=== PATIENT | female | born 1970 | race Caucasian/White ===

== ENCOUNTER 2020-10-06 13:22 | Emergency (ER) | payer OTHER, SELFPAY ==
[2020-10-06 13:58] VITALS: BP 131/75; PULSE 73; RESP 14; TEMP 36.6; O2SAT 100; BMI 30.7
[2020-10-06] MEDS: ACETAMINOPHEN 325 MG TABLET 650 MG PO (14:53)
[2020-10-06] MEDS: TET,DIPH,PERTUSS(ACELL),VAC/PF 0.5 ML SYRINGE IM (14:54)
[2020-10-06] MEDS: LIDOCAINE/PRILOCAINE 5 GM TOP (14:55)
--- NOTE | 2020-10-06 14:59 | PC.NURSE ---
placed lidocaine/prilocaine ointment placed on back of head
--- NOTE | 2020-10-06 15:38 | ED_ITS ---
HPI - Wound/Laceration <ANTONINO AlvarezP - Last Filed: 10/06/20 15:58> General Chief Complaint: Wound/Laceration Stated Complaint: Hit back of head, bleeding Time Seen by Provider: 10/06/20 14:08 Source: patient Mode of arrival: Ambulatory Limitations: no limitations History of Present Illness HPI narrative: This is a 50-year-old female, nonsmoker, who has past medical history significant for fibromyalgia presents to ED with chief complain of posterior head scalp laceration and closed head injury. Patient currently resides in [facility] and she had her dog out to e and the dog went under the RV and when she tried to get the dog out under the RV, she hit her posterior head on the slide of the RV on the metal edge. She denies losing consciousness, neck pain, tingling/numbness/weakness in her upper extremities, vomiting, or seizure activities. She denies taking anticoagulants or antiplatelets at this time. Reports last tetanus immunization are about 7 years ago. Home base is in [place]. Related Data Home Medications Medication Instructions Recorded Confirmed gabapentin 1,200 10/06/20 Allergies Allergy/AdvReac Type Severity Reaction Status Date / Time adhesive tape Allergy Mild Rash Verified 10/06/20 14:51 codeine Allergy ITCHING Verified 10/06/20 14:51 Review of Systems <ANTONINO AlvarezP - Last Filed: 10/06/20 15:58> Review of Systems Narrative: General: Denies fever, chills, fatigue, malaise, sweats. HEENT: See HPI Respiratory: Denies dyspnea, cough, wheezing, hemoptysis, sputum. Cardiovascular: Denies chest pain, palpitations, orthopnea, edema. Gastrointestinal: Denies nausea, vomiting, abdominal pain, diarrhea, constipation, melena. : Denies dysuria, frequency, incontinence, hematuria, urinary retention. Musculoskeletal: Denies weakness, joint pain or bony pain. Skin: See HPI Neurologic: Denies weakness, headache, numbness, change in speech, confusion, seizures, incoordination. Psychiatric: No concerning psychosocial issues. 12-point review of systems is negative except for those stated above. Patient History <ANTONINO AlvarezP - Last Filed: 10/06/20 15:58> Medical History (Updated 10/06/20 @ 15:49 by CORNELIO Alvarez) History of fibromyalgia Social History Smoking Status: Never smoker Smoking Status: Never smoker alcohol intake frequency: 0-2 drinks per day Substance Use Type: does not use Exam <CORNELIO Alvarez - Last Filed: 10/06/20 15:58> Narrative Exam Narrative: General appearance: well developed, well nourished, in no acute distress. Head: normocephalic, vertical 2.5 cm laceration in posterior head, no step-offs, tender to palpate in posterior head. ENT: Bilateral auditory canals without drainage. No Moses signs. Hearing grossly intact. Nose without bleeding, purulent discharge, septal hematoma or deviation. Mucous membrane moist, no mucosal lesion. Throat without erythema, tonsillar hypertrophy or exudate. Uvula in midline, airway patent. Neck/Thyroid: neck supple, full range of motion, no visible masses or meningeal signs. No JVD, non-tender, no step-offs without lymphadenopathy. Skin: See head exam. no suspicious rashes, lesions over visible areas. Warm and dry and appropriate color for ethnicity. Heart: no clubbing, no cyanosis, no edema. S1 and S2 normal. RRR w/o murmurs, clicks, or bruits. Lungs: Breathing even and unlabored. No stridor. No accessory muscles used. Able to speak in full sentences. Chest: normal shape and expansion. Abdomen: non-obese, non-distended. Neurologic: alert and oriented. 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 Psych: good eye contact, normal affect. Initial Vital Signs Initial Vital Signs: Vital Signs Temperature 97.8 F 10/06/20 13:58 Pulse Rate 73 10/06/20 13:58 Respiratory Rate 14 10/06/20 13:58 Blood Pressure 131/75 10/06/20 13:58 Pulse Oximetry 100 10/06/20 13:58 <Ursula Gutierrez DO - Last Filed: 10/07/20 07:31> Initial Vital Signs Initial Vital Signs: Vital Signs Temperature 97.8 F 10/06/20 13:58 Pulse Rate 73 10/06/20 13:58 Respiratory Rate 14 10/06/20 13:58 Blood Pressure 131/75 10/06/20 13:58 Pulse Oximetry 100 10/06/20 13:58 Procedures <Arnold TorresANTONINO arguetaP - Last Filed: 10/06/20 15:58> Laceration Repair Laceration 1: Site: scalp (posterior) Size (cm): 2.5 Description: linear (vertical) Depth: simple, single layer Local Anesthetic: other anesthetic (EMLA) Pre-repair: wound explored and irrigated extensively Skin layer closed with: li Number of sutures: 4 Scores <Arnold [facility]ANTONINO [facility]Hon[facility] Last Filed: 10/06/20 15:58> Swain CT Head Rule Age <16 years old: No Patient on blood thinners: No Seizure after injury: No Exclusion: Patient NOT Excluded, Proceed to next steps GCS < 15 at 2 hr post trauma: No Suspected open or depressed skull fracture: No Any sign of basilar skull fracture (hemotympanum, raccoon eyes, Moses's sign, CSF kal-/rhinorrhea): No Two or more episodes of vomiting: No Age greater or equal to 65 years: No Retrograde amnesia to the event greater or equal to 30 min: No Dangerous Mechanism (pedestrian vs. mv, occupant ejected from mv, fall from >3 ft or > 5 stairs): No Recommendation: CT unnecessary GCS Linda coma scale eye opening: Spontaneous [place] coma scale verbal response: Orientated [place] coma scale motor response: Obey commands Linda coma scale total score: 15 Course <Arnold TorresANTONINO arguetaP - Last Filed: 10/06/20 15:58> Orders Ordered: Discontinued Medications Acetaminophen (Acetaminophen 325 Mg Tablet) 650 mg PO NOW ONE Stop: 10/06/20 14:41 Last Admin: 10/06/20 14:53 Dose: 650 mg Documented by: NEERAJ Bacitracin (Bacitracin Oint 0.9 Gm Pckt) 1 applic TOP NOW ONE Stop: 10/06/20 15:39 Last Admin: 10/06/20 16:17 Dose: 1 applic Documented by: MARVA Diphtheria/Tetanus/Acell Pertussis (Tet,Diph,Pertuss(Acell),Vac/Pf 0.5 Ml Syringe) 0.5 ml IM .ONCE ONE Stop: 10/06/20 14:41 Last Admin: 10/06/20 14:54 Dose: 0.5 ml Documented by: NEERAJ Lidocaine/Prilocaine (Lidocaine/Prilocaine 5 Gm) 5 gm TOP NOW ONE Stop: 10/06/20 14:41 Last Admin: 10/06/20 14:55 Dose: 5 gm Documented by: NEERAJ Vital Signs Vital signs: Vital Signs - 8 hr 10/06/20 13:58 Temperature 97.8 F Pulse Rate 73 Respiratory Rate 14 Blood Pressure 131/75 Pulse Oximetry 100 <Ursula Gutierrez DO - Last Filed: 10/07/20 07:31> Orders Ordered: Discontinued Medications Acetaminophen (Acetaminophen 325 Mg Tablet) 650 mg PO NOW ONE Stop: 10/06/20 14:41 Last Admin: 10/06/20 14:53 Dose: 650 mg Documented by: NEERAJ Bacitracin (Bacitracin Oint 0.9 Gm Pckt) 1 applic TOP NOW ONE Stop: 10/06/20 15:39 Last Admin: 10/06/20 16:17 Dose: 1 applic Documented by: CVANCE Diphtheria/Tetanus/Acell Pertussis (Tet,Diph,Pertuss(Acell),Vac/Pf 0.5 Ml Syringe) 0.5 ml IM .ONCE ONE Stop: 10/06/20 14:41 Last Admin: 10/06/20 14:54 Dose: 0.5 ml Documented by: NEERAJ Lidocaine/Prilocaine (Lidocaine/Prilocaine 5 Gm) 5 gm TOP NOW ONE Stop: 10/06/20 14:41 Last Admin: 10/06/20 14:55 Dose: 5 gm Documented by: NEERAJ Vital Signs Vital signs: Vital Signs - 8 hr 10/06/20 13:58 Temperature 97.8 F Pulse Rate 73 Respiratory Rate 14 Blood Pressure 131/75 Pulse Oximetry 100 [facility] - Wound/Laceration <CORNELIO Avlarez - Last Filed: 10/06/20 15:58> Differential Diagnosis Differential diagnosis: Likely laceration and other (Closed head injury) Medical Records Attestation: I reviewed the patient's medical records. [facility] Narrative Medical decision making narrative: This is a 50-year-old female who presents to ED with closed head injury in posterior head with vertical scalp laceration measuring 2.5 cm. Patient is currently not taking anticoagulants or antiplatelets. GCS 15. Swain head CT rule score 0. Head CT deferred. Slightly tender to palpate in posterior scalp laceration without step-offs, or significant edema. Patient is neurologically intact with midcervial tenderness. Head laceration repaired with 4 li after thoroughly cleaned. Return precautions discussed with patient and advised wound recheck in 2-3 days and staple removal in 7-10 days. We also discussed wound care at home. Advised to use Tylenol as needed for headache and closed head injury precautions. Patient verbalized understanding in agreement with treatment plan. Discharge Plan Departure Patient Disposition: Home Clinical Impression: CHI (closed head injury) Qualifiers: Encounter type: initial encounter Qualified Code(s): S09.90XA - Unspecified injury of head, initial encounter Laceration of scalp Qualifiers: Encounter type: initial encounter Qualified Code(s): S01.01XA - Laceration without foreign body of scalp, initial encounter Instructions: DI for Laceration Repair -- Li, DI for Closed Head Injury Activity Restrictions/Additional Instructions: You have been diagnosed with [closed head injury and posterior scalp laceration that has been repaired with 4 li. You have received Tdap immunization today.]. What to do: *Take your medications as directed. You can use [id number] Tylenol as needed for discomfort. Please do not get your wound soaked in the water until staple removal. You can wash your hair with soap and water after 24 hours. Pat dry with clean paper towel and dress it with antibiotic ointment several times a day as needed. Please monitor for signs and symptoms for infection such as increasing redness, swelling, warmth, pain, fever, purulent discharge. If this occurs, please return to ED or follow up with your primary care physician since your wound may be gotten infected. Please follow up with your primary care provider in 2-3 days for recheck wound. Your li should be removed [ 7-10 ] days. This can be done by your primary provider, walk-in clinic or here in ED. Please keep your wound clean, dry and intact all times. *Follow up with your primary care provider in 2-3 days, call for an appointment. Let them know you were seen in the ED and that we asked you to be seen in follow up. *Return to ED if you have any new, worsening, or concerning symptoms, such as [u nusual behavior, severe headache, vomiting, seizure-like activities, signs and symptoms of infection as above, chest pain, breathing difficulty or any acute concerns]. Prescriptions: No Action gabapentin 600 mg tablet 1,200 RF: 0 <Ursula Gutierrez, - Last Filed: 10/07/20 07:31> Cosign ED Attending Cosignature Attestation: I was immediately available in the department for consultation. Documentation has been reviewed. I agree with asse ssment and plan.
[2020-10-06] MEDS: BACITRACIN OINT 0.9 GM PCKT 1 APPLIC TOP (16:17)
[2020-10-06 16:21] VITALS: BP 129/76; PULSE 54; RESP 14; O2SAT 100
== END 2020-10-06 16:22 | disposition home or self-care (01) ==
PROVIDERS: Emergency Provider Nurse Practitioner Family
DX: S01.01XA Laceration without foreign body of scalp, initial encounter (principal); S09.90XA Unspecified injury of head, initial encounter; W19.XXXA Unspecified fall, initial encounter; Z23 Encounter for immunization
CPT/HCPCS: 12001; 90471; 99282; 99283; 90715

== ENCOUNTER → 2022-03-20 16:28 | Outpatient (CLI) | payer OTHER, SELFPAY ==
--- NOTE | 2022-03-20 16:30 | DI.RAD.S_ITS ---
PROCEDURE: XR KNEE LT 3V INDICATIONS: Knee crepitus and pain TECHNIQUE: 3 views of the knee were acquired. COMPARISON: None. FINDINGS: Bones: No fractures or dislocations. Mild tricompartmental osteoarthritis is seen with joint space narrowing and subchondral sclerosis more prominent in medial femoral tibial compartment. No suspicious bony lesions. Soft tissues: No joint effusion. No suspicious soft tissue calcifications. IMPRESSION: Mild tricompartmental osteoarthritis more prominent in medial femoral tibial compartment. No fracture or dislocation. No significant joint effusion. Dictated by: Ti Morrison M.D. on 03/20/2022 at 18:13 Approved by: Ti Morrison M.D. on 03/20/2022 at 18:13
== END ==
PROVIDERS: PCP Internal Medicine; Referring Provider Student in an Organized Health Care Education/Training Program; Visit Provider Student in an Organized Health Care Education/Training Program
DX: M25.562 Pain in left knee (principal); M17.12 Unilateral primary osteoarthritis, left knee
CPT/HCPCS: 73562

== ENCOUNTER → 2022-08-01 07:55 | Outpatient (CLI) | payer OTHER, SELFPAY ==
--- NOTE | 2022-08-01 | DI.MG.S_ITS ---
BILATERAL DIGITAL SCREENING MAMMOGRAM 3D/2D WITH CAD: 08/01/2022 CLINICAL: Routine screening. Comparison is made to exams dated: 03/07/2020 mammogram and 01/18/2019 mammogram - outside facility. Both breasts are heterogeneously dense, which may obscure small masses (category c / 51-75% glandular tissue). Current study was also evaluated with a Computer Aided Detection (CAD) system. There is a possible developing irregular high density asymmetry in the right breast at 11 o'clock middle depth. No other significant masses, calcifications, or other findings are seen in either breast. IMPRESSION: INCOMPLETE: NEEDS ADDITIONAL IMAGING EVALUATION The possible developing irregular high density asymmetry in the right breast is indeterminate. Additional views with possible ultrasound are recommended. Based on the Tyrer Cuzick model (a risk assessment model) the patient's lifetime risk is 7.8% and her 10 year risk is 1.7%. According to the ACR, ACS, and NCCN guidelines, an annual breast MRI exam along with mammogram is recommended if the patient's lifetime risk is 20% or greater. This exam was interpreted at Station ID: [id number]. NOTE: For mammograms, a report in lay terms will be sent to the patient. Approximately 15% of breast malignancies will not be visualized mammographically. In the management of a palpable breast mass, a negative mammogram must not discourage biopsy of a clinically suspicious lesion. Electronically Signed By: Karen pond/rivka:08/01/2022 11:45:10 letter sent: Additional Imaging Needed ACR BI-RADS Category 0: Incomplete [id number]
== END ==
PROVIDERS: PCP Internal Medicine; Referring Provider Internal Medicine; Visit Provider Internal Medicine
DX: Z12.31 Encounter for screening mammogram for malignant neoplasm of breast (principal)
CPT/HCPCS: 77063; 77067

== ENCOUNTER → 2022-08-20 10:17 | Outpatient (CLI) | payer OTHER, SELFPAY ==
--- NOTE | 2022-08-20 10:18 | DI.MG.S_ITS ---
UNILATERAL RIGHT DIGITAL DIAGNOSTIC MAMMOGRAM 3D/2D WITH ADDITIONAL VIEWS: 08/20/2022 CLINICAL: Additional evaluation requested from prior study. Comparison is made to exams dated: 08/01/2022 mammogram - [facility], 03/07/2020 mammogram, and 01/18/2019 mammogram - outside facility. There are scattered areas of fibroglandular density in the right breast (category b / 25%-50% glandular tissue). With focal spot compression, and additional views, the possible asymmetry seen on screening mammography in the right breast at 11 o'clock in the middle depth resolves. No persistent finding. No significant masses, calcifications, or other findings are seen in the breast. IMPRESSION: NEGATIVE Resolution of screening mammography abnormality with additional views. There is no mammographic evidence of malignancy. Return to annual mammogram screening schedule is recommended. Findings and recommendations were conveyed to the patient at time of exam. Based on the Tyrer Cuzick model (a risk assessment model) the patient's lifetime risk is 5.2% and her 10 year risk is 1.1%. According to the ACR, ACS, and NCCN guidelines, an annual breast MRI exam along with mammogram is recommended if the patient's lifetime risk is 20% or greater. This exam was interpreted at Station ID: [id number]. NOTE: For mammograms, a report in lay terms will be sent to the patient. Approximately 15% of breast malignancies will not be visualized mammographically. In the management of a palpable breast mass, a negative mammogram must not discourage biopsy of a clinically suspicious lesion. Electronically Signed By: Karen pond/:08/20/2022 10:43:30 letter sent: Normal Exam ACR BI-RADS Category 1: Negative [id number]
== END ==
PROVIDERS: PCP Internal Medicine; Referring Provider Internal Medicine; Visit Provider Internal Medicine
DX: R92.8 Other abnormal and inconclusive findings on diagnostic imaging of breast (principal)
CPT/HCPCS: 77065; G0279

== ENCOUNTER → 2023-02-03 16:42 | Outpatient (CLI) | payer OTHER, SELFPAY ==
--- NOTE | 2023-02-03 | DI.MRI.S_ITS ---
PROCEDURE: MR ORBITS FACE NECK WO/W CON INDICATIONS: TRIGEMINAL NEURALGIA TECHNIQUE: Sagittal/axial/coronal T1 spin echo and STIR. After the administration of contrast, axial/coronal/sagittal T1 fast spin echo with fat saturation through the neck. COMPARISON: None. FINDINGS: Image quality: There is artifact associated with the metallic dental work. Lymph nodes: No enlarged nodes are seen throughout the neck. Vessels: Visualized vasculature appears normal, with normal flow voids and enhancement. Neck spaces: Scrutiny is given to the oral and the perimandibular regions. To the limits of the study with susceptibility artifact, no fluid collections or abnormal enhancement can be seen. The oropharynx, nasopharynx and pharynx are unremarkable, without mucosal lesions seen. Vocal cords, false vocal cords, pyriform sinuses, epiglottis, vallecula, and tongue base all appear normal. Extramucosal spaces of the neck also appear unremarkable. Glands: The parotid and submandibular glands appear normal. Miscellaneous: Visualized brain and orbits appear normal. Lung apices appear clear. Superficial soft tissues appear normal. Visualized sinuses and mastoids appear clear. Bones: Marrow has normal overall signal. IMPRESSION: Study within normal limits, although limited by susceptibility artifact from the patient's metallic dental work. Dictated by: Byron Campbell M.D. on 02/03/2023 at 18:19 Approved by: Byron Campbell M.D. on 02/03/2023 at 18:21
--- NOTE | 2023-02-03 16:45 | DI.MRI.S_ITS ---
PROCEDURE: MR HEAD/BRAIN WO/W CON INDICATIONS: Trigeminal Neuralgia TECHNIQUE: Noncontrast sagittal T1 spin echo, axial T2 fast spin echo, axial FLAIR, axial gradient echo, axial diffusion and ADC through the brain. Axial/sagittal/coronal 3-D CISS, thin-slice axial T1 spin echo with fat saturation through the skull base. After the administration of contrast, axial and coronal thin-slice T1 spin echo with fat saturation through the skull base, axial and coronal and sagittal T1 spin echo with fat saturation through the brain. COMPARISON: [facility], MR, MR ORBITS FACE NECK WO/W CON, 02/03/2023, 17:03. FINDINGS: Image quality: Excellent. Trigeminal nerves: In this patient with this given history, scrutiny is given to the trigeminal nerves. The trigeminal nerves demonstrate a normal appearance, without masses or abnormal enhancement seen along their courses, including within the Meckel's caves. CSF spaces: Ventricles are normal in size and shape. No extra-axial fluid collections. Basal cisterns are patent. Brain: No intracranial bleeds or mass effects. No abnormal intracranial enhancement. Diffusion weighted images show no acute ischemic insults. Saba-white matter interface is intact. Brainstem is normal. Normal intravascular flow voids are present. Skull and face: Calvarial marrow signal is normal. Orbits appear normal. Sinuses: Sinuses and mastoids appear clear. IMPRESSION: Study within normal limits, without a cause of trigeminal neuralgia identified. Dictated by: Byron Campbell M.D. on 02/03/2023 at 18:17 Approved by: Byron Campbell M.D. on 02/03/2023 at 18:19
== END ==
LOC: MRI 16:44
PROVIDERS: PCP Internal Medicine; Referring Provider Psychiatry & Neurology Neurology; Visit Provider Psychiatry & Neurology Neurology
DX: G50.0 Trigeminal neuralgia (principal); S04.32 Injury of trigeminal nerve, left side
CPT/HCPCS: 70543; 70553; A9579

== ENCOUNTER 2023-11-06 08:07 | Day surgery (SDC) | payer OTHER, SELFPAY ==
[2023-11-06 08:50] VITALS: BP 129/88; PULSE 71; RESP 16; TEMP 36.4; O2SAT 95
[2023-11-06] MEDS: LACTATED RINGERS 1,000 ML 42 ML IV (08:56)
--- NOTE | 2023-11-06 10:07 | P.HP_ITS ---
History of Present Illness History of Present Illness Date Patient Seen: 11/06/23 Time Patient Seen: 10:07 Chief complaint: Screening Colonoscopy Narrative: Colon cancer screening, no family history of colon cancer. Had a colonoscopy 5 years ago prior to operative procedure rectocele and cystocele. [facility] Medical History Hot flashes Rosacea (~2017) Osteoarthritis (~2009) Degenerative disc disease (~2009) Foot pain (~2008) Chronic back pain (~2007) Carpal tunnel syndrome (~2009) Chicken pox (~1976) Heavy menstrual period (~2005) Pelvic prolapse (~2015) Hemorrhoid (~2013) Cystocele Rectocele Fibromyalgia (~2009) Surgical History Anesthesia History of surgery (~2018) History of carpal tunnel release (~2010) History of foot surgery History of dilatation and curettage (~2006) History of section (~1992) History of tonsillectomy (~1990) History of endometrial ablation (~2008) H/O pelvic surgery (~2015) Status post cholecystectomy (~1994) Family History Father Myocardial infarction History of heart disease Grandmother Vulvar cancer Cervical cancer Hypertension Myocardial infarction Grandmother Myocardial infarction Social History Smoking Status: Never smoker alcohol intake: current Meds Home Medications and Allergies Home Medications Medication Instructions Recorded Confirmed Type docusate sodium 100 mg capsule 200 mg PO BEDTIME 01/17/22 11/06/23 History gabapentin 600 mg tablet See Rx Instructions PO TID #360 01/07/23 11/06/23 Rx tabs estradiol 0.5 mg tablet 0.5 mg PO DAILY #90 tabs 09/24/23 11/06/23 Rx progesterone micronized 100 mg 100 mg PO QAM #90 caps 09/24/23 11/06/23 Rx capsule Allergies Allergy/AdvReac Type Severity Reaction Status Date / Time adhesive tape Allergy Mild Rash Verified 11/06/23 08:44 codeine Allergy Unknown ITCHING Verified 11/06/23 08:44 Review of Systems Review of Systems ROS: Yes All systems reviewed with the patient and are negative except as otherwise documented Exam Vital Signs (past 8 hours): - 11/06/23 08:50 Temperature 97.5 F L Pulse Rate 71 Respiratory Rate 16 Blood Pressure 129/88 Pulse Oximetry 95 Oxygen Delivery Method Room Air Oxygen Delivery Method Room Air Const General: cooperative, healthy appearing and comfortable [facility] Head: normocephalic and atraumatic Eyes Periorbital: periorbital findings normal Neck Neck: trachea midline Resp Effort & Inspection: normal respiratory effort and able to speak in complete sentences GI Inspection: normal to inspection Palpation: soft Skin General: elasticity normal and turgor normal Neuro General: patient alert, patient awake and patient oriented x3 Speech: speech normal Psych Appearance: grossly normal Mental Status: mental status grossly normal Judgment: judgment good Assessment & Plan Assessment & Plan narrative: Colon cancer screening. Plan colonoscopy with anesthesia Time Spent With Patient Time with patient: less than 30 minutes
--- NOTE | 2023-11-06 10:09 | PM.OP.COLON ---
Operative Date/Time/Diagnoses Date of procedure: 11/06/23 Time of procedure: 10:09 Pre-op diagnosis: Colon cancer screening Post-op diagnosis: same Procedure & Clinicians Study performed: Colonoscopy with anesthesia Same procedure as scheduled: Yes Indications: Colon cancer screening Surgeon: Xiomara Ramirez Procedure Notes Procedure in detail: Preop diagnosis: Colon cancer screening Postop diagnosis: Same Operative procedure: Colonoscopy with anesthesia Surgeon: Ashley Ramirez MD Findings: Normal colonoscopy. No polyps. No significant diverticulitis. Small telangiectasia in the splenic flexure Procedure: Patient placed in a lateral position. Rectal exam performed showing normal tone no masses. She does have external hemorrhoidal tags. Scope was inserted into the rectum and advanced to ileocecal valve with minimal difficulty. Insufflation extraction scope and the above findings. Retroflex was included in the rectum Impression: No polyps. No significant diverticulosis. Small telangiectasia in the splenic flexure. Plan repeat colonoscopy in 10 years unless otherwise indicated by change in clinical condition Specimen(s): none sent Complications: none Post-procedure Recommendations: Colonoscopy in 10 years Follow up: as needed Disposition: PACU
[2023-11-06 10:10] VITALS: BP 128/83; PULSE 88; RESP 16; TEMP 36.2; O2SAT 98
[2023-11-06 10:16] VITALS: BP 125/78; PULSE 77; RESP 16; TEMP 36.2; O2SAT 98
== END 2023-11-06 10:26 | disposition home or self-care (01) ==
PROVIDERS: Surgery; PCP Internal Medicine; Referring Provider Surgery; Visit Provider Surgery
PROC: 0DJD8ZZ Inspection of Lower Intestinal Tract, Via Natural or Artificial Opening Endoscopic (ICD-10-PCS; CPT 45378; principal; 2023-11-06 09:15)
DX: Z12.11 Encounter for screening for malignant neoplasm of colon (principal); I78.1 Nevus, non-neoplastic
CPT/HCPCS: 45378; J2250; J2704

== ENCOUNTER → 2024-11-16 09:15 | Outpatient (CLI) | payer OTHER, SELFPAY ==
--- NOTE | 2024-11-16 09:16 | DI.MG.S_ITS ---
BILATERAL DIGITAL SCREENING MAMMOGRAM 3D/2D WITH CAD: 11/16/2024 CLINICAL: Routine screening. Comparison is made to exams dated: 08/01/2022 mammogram - [facility], 03/07/2020 mammogram, and 01/18/2019 mammogram - outside facility. There are scattered areas of fibroglandular density (category b / 25%-50% glandular tissue). Current study was also evaluated with a Computer Aided Detection (CAD) system. No significant masses, calcifications, or other findings are seen in either breast. There has been no significant interval change. IMPRESSION: NEGATIVE There is no mammographic evidence of malignancy. A 1 year screening mammogram is recommended. Based on the Tyrer Cuzick model (a risk assessment model) the patient's lifetime risk is 5.1% and her 10 year risk is 1.3%. According to the ACR, ACS, and NCCN guidelines, an annual breast MRI exam along with mammogram is recommended if the patient's lifetime risk is 20% or greater. This exam was interpreted at Station ID: [id number]. NOTE: For mammograms, a report in lay terms will be sent to the patient. Approximately 15% of breast malignancies will not be visualized mammographically. In the management of a palpable breast mass, a negative mammogram must not discourage biopsy of a clinically suspicious lesion. Electronically Signed By: Joshua mercedes/rivka:11/16/2024 17:57:52 letter sent: Normal Exam ACR BI-RADS Category 1: Negative
== END ==
PROVIDERS: PCP Internal Medicine; Referring Provider Internal Medicine; Visit Provider Internal Medicine
DX: Z12.31 Encounter for screening mammogram for malignant neoplasm of breast (principal)
CPT/HCPCS: 77063; 77067

== ENCOUNTER → 2025-07-18 10:16 | Outpatient (CLI) | payer OTHER, SELFPAY ==
--- NOTE | 2025-07-18 10:17 | DI.RAD.S_ITS ---
PROCEDURE: XR SHOULDER RT MIN 2V INDICATIONS: Right shoulder pain TECHNIQUE: 3 views of the shoulder were acquired. COMPARISON: None. FINDINGS: Bones: No fractures or dislocations. No suspicious bony lesions. Visualized ribs appear intact. Mild acromioclavicular joint degeneration. Soft tissues: No suspicious soft tissue calcifications. IMPRESSION: No acute osseous abnormalities. Mild degenerative changes of the shoulder. Dictated by: Stefan May M.D. on 07/18/2025 at 13:06 Approved by: Stefan Mya M.D. on 07/18/2025 at 13:08
== END ==
LOC: RAD 10:17
PROVIDERS: PCP Internal Medicine; Referring Provider Physician Assistant Medical; Visit Provider Physician Assistant Medical
DX: S49.91XA Unspecified injury of right shoulder and upper arm, initial encounter (principal); X58.XXXA Exposure to other specified factors, initial encounter
CPT/HCPCS: 73030